=== PATIENT | female | born 1990 | race Asian ===

== ENCOUNTER → 2023-12-16 | Outpatient (REF) | payer OTHER | LOC: M LAB REF 20:13 | PROVIDERS: ATTEND Physician Assistant | DX: R30.0 Dysuria (principal) ==

== ENCOUNTER → 2024-10-09 | Outpatient (REF) | payer OTHER | LOC: M LAB REF 16:46 | PROVIDERS: ATTEND Nurse Practitioner Family | DX: R19.7 Diarrhea, unspecified (principal) ==